=== PATIENT | male | born 1995 | race Caucasian/White ===

== ENCOUNTER 2016-11-16 14:24 | Emergency (ER) | payer BC ==
[~2016-11-16] VITALS: Ht 180.3 cm; Wt 75.2 kg
[2016-11-16 14:29] VITALS: TEMP 36.6; Ht 180.3 cm; Wt 75.2 kg
[2016-11-16 14:43] VITALS: O2SAT 98
[2016-11-16] MEDS ORDERED: MoRPHine SULFATE 4 MG/ML 1 ML CARP\\VIAL IV STA (14:49)
[2016-11-16] MEDS ORDERED: SODIUM CHLORIDE 0.9% 1000ML 1,000 ML IV STA (14:49)
[2016-11-16] MEDS ORDERED: LORAZEPAM 0.5 MG TAB PO STA (14:49)
[2016-11-16] MEDS ORDERED: ONDANSETRON INJ 2 MG/ML 2 ML VIAL IV STA (14:49)
--- NOTE | 2016-11-16 14:51 | EMERGENCY ROOM VISIT NOTE ---
History Report prepared by Gabriela: Kristie Bo Under the Supervision of: Dr. Ajit Acosta M.D. First contact with patient: 14:34 Chief Complaint: CARDIAC ASSESSMENT Stated Complaint: CHEST PAIN DOESNT FEEL RIGHT Nursing Triage Summary: Patient reports history of non hodgkins lymphoma and has been cancer free for one year one month. Patient has been having pain in his sternum area for approx 8 months over the past few days he has had an increase in pain and shortness of breath. Today having alot of anxiety. History of Present Illness The patient is a 21 year old white male with a past medical history of NHL who presents to the ED with a cc of constant beginning 2 days ago. The patient states that he has been cancer free for 13 months and has been having constant chest pain over the last 8 months. He reports that the pain is sharp and tense and feels like a bruising over his sternum. He notes that he developed SOB 2 days ago and his chest pained worsened. Positive nausea, diaphoresis, heart racing, productive clear cough, cold. Negative urinary symptoms, trauma, history of blood clots. The patient states that he has a history of anxiety since his cancer diagnosis. He reports that he thinks this may be anxiety but it feels different than previous episodes. He notes that he drove 8 hours here from [place] 1 week ago. He rates his pain as a 2/10 but when it gets bad it is a 4/10. Source of History: patient Onset: 2 days ago Position: chest Symptom Intensity: 4/10 Quality: sharp Timing: constant Associated Symptoms: + diaphoresis, + cough, + nausea, No urinary symptoms Note: Positive heart racing. Review of Systems See HPI for pertinent positives and negatives. A total of ten systems were reviewed and were otherwise negative. Past Medical & Surgical Medical Problems: (1) NHL (non-Hodgkin's lymphoma) Family History No pertinent family history stated. Social History Smoking Status: Current Some Day Smoker Alcohol Use: occasionally Drug Use: marijuana Current/Historical Medications Scheduled Omeprazole (Prilosec), 20 MG PO DAILY Scheduled PRN Hydroxyzine Pamoate (Vistaril), 1 CAP PO BID PRN for Anxiety/Agitation Allergies Coded Allergies: No Known Allergies (Unverified , 11/16/16) Physical Exam Vital Signs Date Time Temp Pulse Resp B/P (MAP) Pulse Ox O2 Delivery O2 Flow Rate FiO2 11/16/16 16:34 61 16 135/58 97 11/16/16 14:44 74 11/16/16 14:43 98 Room Air 11/16/16 14:36 99 Room Air 11/16/16 14:29 36.6 84 20 169/98 99 Room Air Physical Exam GENERAL: Awake, alert, well-appearing, mildly anxious HENT: No palpable masses to the neck, no supraclavicular nodes felt. EYES: Normal conjunctiva. Sclera non-icteric. NECK: Supple. No nuchal rigidity. FROM. RESPIRATORY: CTAB, no rhonchi, wheezing, crackles CARDIAC: RRR, no MRG ABDOMEN: Soft, Mild epigastric TTP, BS+ MSK: Mild reproducible sternal and chest wall pain without crepitus or overt signs of trauma, no LE edema NEURO: GCS 15, CN 2-12 intact, moves all 4s on command SKIN: No rash or jaundice noted. Medical Decision & Procedures ER Provider Diagnostic Interpretation: X-ray: Per my interpretation, radiologist review. CHEST 2 VIEWS ROUTINE FINDINGS: The lungs are clear. Cardiac silhouette is normal in size. No pleural effusions. No pneumothorax. Mild dextroscoliosis of the thoracic spine. IMPRESSION: No acute process. Electronically signed by: Fam Villa M.D. 11/16/2016 3:44 PM Dictated Date/Time: 11/16/2016 3:42 PM Laboratory Results 11/16/16 14:55 Red Blood Count 5.08, Mean Corpuscular Volume 83.9, Mean Corpuscular Hemoglobin 31.5, Mean Corpuscular Hemoglobin Concent 37.6, Mean Platelet Volume 9.9, Neutrophils (%) (Auto) 75.3, Lymphocytes (%) (Auto) 15.1, Monocytes (%) (Auto) 6.9, Eosinophils (%) (Auto) 2.2, Basophils (%) (Auto) 0.3, Neutrophils # (Auto) 4.88, Lymphocytes # (Auto) 0.98, Monocytes # (Auto) 0.45, Eosinophils # (Auto) 0.14, Basophils # (Auto) 0.02 11/16/16 14:55 Test 11/16/16 14:55 White Blood Count 6.48 K/uL (4.8-10.8) Red Blood Count 5.08 M/uL (4.7-6.1) Hemoglobin 16.0 g/dL (14.0-18.0) Hematocrit 42.6 % (42-52) Mean Corpuscular Volume 83.9 fL (80-100) Mean Corpuscular Hemoglobin 31.5 pg (25-34) Mean Corpuscular Hemoglobin Concent 37.6 g/dl (32-36) Platelet Count 127 K/uL (130-400) Mean Platelet Volume 9.9 fL (7.4-10.4) Neutrophils (%) (Auto) 75.3 % Lymphocytes (%) (Auto) 15.1 % Monocytes (%) (Auto) 6.9 % Eosinophils (%) (Auto) 2.2 % Basophils (%) (Auto) 0.3 % Neutrophils # (Auto) 4.88 K/uL (1.4-6.5) Lymphocytes # (Auto) 0.98 K/uL (1.2-3.4) Monocytes # (Auto) 0.45 K/uL (0.11-0.59) Eosinophils # (Auto) 0.14 K/uL (0-0.5) Basophils # (Auto) 0.02 K/uL (0-0.2) RDW Standard Deviation 36.9 fL (36.4-46.3) RDW Coefficient of Variation 12.1 % (11.5-14.5) Immature Granulocyte % (Auto) 0.2 % Immature Granulocyte # (Auto) 0.01 K/uL (0.00-0.02) Anion Gap 8.0 mmol/L (3-11) Est Creatinine Clear Calc Drug Dose 125.3 ml/min Estimated GFR () 125.0 Estimated GFR (Non- 107.9 BUN/Creatinine Ratio 14.1 (10-20) Calcium Level 9.2 mg/dl (8.5-10.1) Total Bilirubin 1.0 mg/dl (0.2-1) Direct Bilirubin 0.2 mg/dl (0-0.2) Aspartate Amino Transf (AST/SGOT) 13 U/L (15-37) Alanine Aminotransferase (ALT/SGPT) 16 U/L (12-78) Alkaline Phosphatase 94 U/L (45-117) Total Protein 7.3 gm/dl (6.4-8.2) Albumin 4.0 gm/dl (3.4-5.0) Lipase 167 U/L (73-393) Laboratory results reviewed by me Medications Administered Medications (Trade) Dose Ordered Sig/Racheal Route Start Time Stop Time Status Last Admin Dose Admin Sodium Chloride 1,000 ml @ 999 mls/hr Q1H1M STAT IV 11/16/16 14:49 11/16/16 15:49 DC 11/16/16 15:04 999 MLS/HR Ondansetron HCl (Zofran Inj) 4 mg NOW STAT IV 11/16/16 14:49 11/16/16 14:51 DC 11/16/16 15:03 4 MG Lorazepam (Ativan Tab) 0.5 mg NOW STAT PO 11/16/16 14:49 11/16/16 14:51 DC 11/16/16 15:03 0.5 MG Morphine Sulfate (MoRPHine SULFATE INJ) 4 mg NOW STAT IV 11/16/16 14:49 11/16/16 14:51 DC 11/16/16 15:03 4 MG ECG Indication: chest pain Rate (beats per minute): 65 Rhythm: normal sinus Findings: T-wave inversion (isolated L3), other (normal interals, normal axis, no STS changes, no other contiguous changes) ED Course 1434: The patient was evaluated in room C8. A complete history and physical exam was performed. 1553: I reevaluated and updated the patient. 1621: I reevaluated the patient. Discussed results and discharge instructions: He verbalized understanding and agreement. The patient is ready for discharge. Medical Decision The patient is a 21 year old white male with a past medical history of NHL who presents to the ED with a cc of constant beginning 2 days ago. Differential diagnosis: Etiologies such as cardiac ischemia, aortic dissection, pulmonary embolism, pneumonia, pneumothorax, musculoskeletal, infections, pericarditis, myocarditis , esophageal rupture, gastrointestinal, as well as others were entertained. Patient was seen and evaluated at the bedside. Patient had lab work was given medications. Patient had a negative chest x-ray and a fairly benign EKG. Patient was feeling improved. Patient states that his anxiety and his shortness of breath and chest pain until improved. Patient's history and physical was likely ACS especially given the relatively normal EKG. Patient's story along with vital signs and symptoms less likely for PE. Patient is PE RC negative. Patient feeling improved. Patient did have URI type symptoms with some mild cough chest x-ray clear less likely pneumonia. Patient was told to continue supportive care and [id number] treatment as needed for his symptoms. Patient told to follow daily at bedtime. Patient was given strict follow-up, discharge, and return precautions. Patient agreed with plan of care patient was safely discharged home. Medication Reconcilliation Current Medication List: was personally reviewed by me Blood Pressure Screening Patient's blood pressure: Elevated blood pressure Blood pressure disposition: Elevated BP felt to be situational Impression Primary Impression: Chest wall pain Additional Impressions: Anxiety Viral upper respiratory infection Scribe Attestation The scribe's documentation has been prepared under my direction and personally reviewed by me in its entirety. I confirm that the note above accurately reflects all work, treatment, procedures, and medical decision making performed by me. Departure Information Dispostion Home / Self-Care Prescriptions Hydroxyzine Pamoate (VISTARIL) 25 Mg Cap 1 CAP PO BID Y for Anxiety/Agitation for 30 Days, #60 CAP 1 Refill Prov: Ajit Acosta M.D. 11/16/16 [facility] Patient Instructions Anxiety Body Response, Anxiety Disorder Tx W Therapy, ED Upper Resp Infec No Abx Tx, My [facility] Additional Instructions Please return to the emergency department if you have worsening or recurrent symptoms not amenable to at-home treatment. Please call for a follow-up appointment with her primary care physician. Please take your medications as prescribed. If you have other concerns and/or complaints please feel free to also call your primary care physician's office or return the ED for further evaluation, management, and treatment. You received narcotic or benzodiazepene medication while in the emergency room today. This is an addictive medication that may cause drowziness as well as constipation. Do not drive, operate heavy machinery, or drink alcohol under the influence of this medication. Take 600 mg Ibuprofen every 6 hours with food for no more than two consecutive days. You may also take tylenol 1000mg every 6 hours for pain. You may take mucinex for cough, follow instructions. You may also take decongestants but for no more than 3 consecutive days as this may cause rebound congestion. Please f/ u w/ you PCP and or [facility]. You have been examined and treated today on an emergency basis only. This is not a substitute for, or an effort to provide, complete comprehensive medical care. It is impossible to recognize and treat all injuries or illnesses in a single emergency department visit. It is therefore important that you follow up closely with [facility]. Call as soon as possible for an appointment. Thank you for your time and consideration. I look forward to speaking with you again soon. Please don't hesitate to call us if you have any questions. Problem Qualifiers
[2016-11-16 15:08] LABS: BASO % 0.3 %; BASO ABS # 0.02 K/uL (0-0.2); COMPLETE YES; EOS % 2.2 %; HEMATOCRIT 42.6 % (42-52); IG% 0.2 %; LYMPH % 15.1 %; LYMPH ABS # 0.98 K/uL (1.2-3.4); MEAN CELL VOLUME 83.9 fL (80-100); MEAN CORPUSCULAR HEMOGLOBIN 31.5 pg (25-34); MEAN CORPUSCULAR HGB CONC 37.6 g/dl (32-36); MEAN PLATELET VOLUME 9.9 fL (7.4-10.4); MONO % 6.9 %; NEUT % 75.3 %; PLATELET COUNT 127 K/uL (130-400); RED BLOOD COUNT 5.08 M/uL (4.7-6.1); WHITE BLOOD COUNT 6.48 K/uL (4.8-10.8)
[2016-11-16] MEDS ORDERED: PRLSR20 PO (15:15)
[2016-11-16 15:27] LABS: BUN/CREATININE RATIO 14.1 (10-20); CALCIUM 9.2 mg/dl (8.5-10.1); POTASSIUM 3.5 mmol/L (3.5-5.1)
--- NOTE | 2016-11-16 15:45 | DIAGNOSTIC IMAGING REPORT ---
CHEST 2 VIEWS ROUTINE HISTORY: h/o of NHL in remission, atypical chest pain COMPARISON: None. FINDINGS: The lungs are clear. Cardiac silhouette is normal in size. No pleural effusions. No pneumothorax. Mild dextroscoliosis of the thoracic spine. IMPRESSION: No acute process. Electronically signed by: Fam Villa M.D. 11/16/2016 3:44 PM Dictated Date/Time: 11/16/2016 3:42 PM
[2016-11-16] MEDS ORDERED: HYDR25CA PO (16:21)
[2016-11-16 16:34] VITALS: BP 135/58; PULSE 61; O2SAT 97
== END 2016-11-16 16:35 | disposition home or self-care (01) ==
LOC: C.EDB 14:26 → C.EDC 16:35
DX: R07.89 Other chest pain (principal); F41.9 Anxiety disorder, unspecified; J06.9 Acute upper respiratory infection, unspecified; R06.02 Shortness of breath; R05 Cough; R11.0 Nausea; Z79.899 Other long term (current) drug therapy; Z85.72 Personal history of non-Hodgkin lymphomas; F17.200 Nicotine dependence, unspecified, uncomplicated